=== PATIENT | female | born 1995 | race African-American/Black ===

== ENCOUNTER 2020-01-02 13:54 | Outpatient (CLI) | payer OTHER, SELFPAY ==
--- NOTE | ~2020-01-02 | XR_ITS ---
EXAMINATION: XR chest 2V EXAM DATE: 01/02/2020 14:33 INDICATION: Frontal chest pain. TECHNIQUE: Frontal and lateral projections of the chest obtained and reviewed. There is no prior justin dy for comparison. FINDINGS: The lungs are clear. There are no pleural effusions. The cardiomediastinal silhouette is within normal limits. There is no pneumothorax suspected. The bones and soft tissues are unremarkab le. IMPRESSION: Normal chest x-ray exam. Reviewed, dictated and finalized at location B. IMPRESSION: Normal chest x-ray exam.
[2020-01-02 15:11] LABS: Basophils Percent Auto 0.2 % (0.2-1.2); Eosinophils Absolute Auto 0.1 K/mm3 (0-0.3); Eosinophils Percent Auto 0.7 % (0-4.4); Hematocrit 42.6 % (37.0-47.0); Hemoglobin 14.4 g/dL (12.0-15.0); Immature Granulocyte Absolute 0.03 K/mm3 (0.00-0.031); Immature Granulocyte Percent A 0.3 % (0-0.5); Lymphocytes Absolute Auto 3.32 K/mm3 (0.9-3.2); Lymphocytes Percent Auto 33.4 % (18.3-44.2); Mean Corpuscular HGB Conc 33.8 g/dl (32-36); Mean Corpuscular Hemoglobin 30.8 pg (26-34); Mean Platelet Volume 9.5 fl (7.4-10.4); Monocytes Absolute Auto 0.7 K/mm3 (0.1-0.6); Monocytes Percent Auto 6.8 % (2.6-8.5); Neutrophils Absolute Auto 5.8 K/mm3 (1.3-6.7); Neutrophils Percent Auto 58.6 % (45.5-73.1); Platelet Count Result 256 k/mm3 (150-375); Red Blood Count 4.68 M/mm3 (4.2-5.4); Red Cell Distribution Width 12.6 % (11.5-14.5)
[2020-01-02 15:21] LABS: Alanine Aminotransferase 30 U/L (4-35); Albumin Level 4.4 g/dL (3.5-5.1); Alkaline Phosphatase 62 U/L (38-126); Aspartate Amino Transferase 26 U/L (14-36); Bilirubin,Total 0.4 mg/dL (0.2-1.3); Blood Urea Nitrogen 5 mg/dL (7-17); Calcium 9.5 mg/dL (8.4-10.2); Carbon Dioxide 29 mmol/L (22-30); Chloride 102 mmol/L (98-107); Estimated Glomerular Filt Rate > 60; Glucose 89 mg/dL (65-105); Potassium 3.7 mmol/L (3.4-5.0); Sodium 139 mmol/L (137-145)
[2020-01-02 15:33] LABS: Troponin I < 0.012 ng/mL (0.000-0.034)
[2020-01-02 15:49] LABS: D Dimer 0.27 ug/mL (<0.48)
== END 2020-01-02 13:55 | disposition home or self-care (01) ==
LOC: ANHIMG 14:07
PROVIDERS: Visit Provider Internal Medicine
DX: R07.9 Chest pain, unspecified (principal)
CPT/HCPCS: 36415; 71046; 80053; 84484; 85025; 85380

== ENCOUNTER 2021-02-22 01:50 | Day surgery (SDC) | payer OTHER, SELFPAY ==
[2021-02-17 17:32] VITALS: BMI 26.4
[2021-02-22] VITALS (7 sets, daily range): BP systolic 111–130; BP diastolic 74–88; PULSE 80–134; RESP 16–20; TEMP 37.1; O2SAT 98–100; BMI 27.3
--- NOTE | 2021-02-22 08:37 | SUR.PREOP ---
patient provided negative Covid results from test on 02/20/2021, placed on chart
--- NOTE | 2021-02-22 09:21 | PM.IMHP ---
H&P: HPI History of Present Illness Date/Time: 02/22/21 09:21 Chief Complaint: tonsillar hypertrophy Narrative: chronically enlarged tonslis after tonsilitis Review of Systems Review of Systems: All systems reviewed & are unremarkable except as noted in HPI and below PMFSH Past Medical History Medical History Asthma Social History Social History Smoking status: Never smoker Living arrangements: alone Gender identity (if verbalized by the patient): Female Spiritual care concerns: No Meds Home Medications and Allergies Home Medications Medication Instructions Recorded Confirmed Type Depo-Provera Contraceptive 1 dose IM DIRECTED 02/17/21 02/17/21 History albuterol 1 dose INHALATION PRN PRN 02/17/21 02/17/21 History Allergies Allergy/AdvReac Type Severity Reaction Status Date / Time No Known Allergies Allergy Unverified 02/17/21 17:32 Exam Narrative: Exam Narrative: 4+ exophytic tonsils, rest of exam wnl Assessment and Plan Assessment and plan (1) Chronic tonsillitis: Code(s): J35.01 - Chronic tonsillitis Status: Acute Assessment and Plan: Here for tonsillectomy for chronic tonsillitis. Refer to outpt H&P for full details
--- NOTE | 2021-02-22 09:23 | WPDHPUPDATE1 ---
History and Physical Update Update Date/Time: 02/22/21 09:23 History and Physical has been reviewed, including an updated exam of the patient. There are NO changes in the patient's condition. Risks, benefits, and alternatives have been discussed and questions answered. Patient agrees to proceed with procedure.
[2021-02-22] MEDS: ACETAMINOPHEN 500 MG TABLET 1000 MG PO (09:46)
[2021-02-22] MEDS: LACTATED RINGERS 1,000 ML 30 ML IV CONT (10:00)
--- NOTE | 2021-02-22 10:03 | P.PNAN_ITS ---
Anes - Initial Pre Proc Eval Procedure: Operation Date: 02/22/21 11:00 Proposed Procedures p Bilateral Tonsillectomy - Drew Morejon MD Date/Time: 02/22/21 10:03 Surgeon: Drew Morejon MD Pre Op Diagnosis: tonsillar hypertrophy Patient Data Age: 25 Gender: F Height: 1.55 m Weight: 63.5 kg Allergies Allergy/AdvReac Type Severity Reaction Status Date / Time No Known Allergies Allergy Verified 02/22/21 09:40 Home Medications Medication Instructions Recorded Confirmed Type Depo-Provera Contraceptive 1 dose IM DIRECTED 02/17/21 02/17/21 History albuterol 1 dose INHALATION PRN PRN 02/17/21 02/22/21 History Patient hx anesthesia problems: none Family hx anesthesia problems: none [facility] Past Medical History Medical History Asthma Social History Social History Smoking status: Never smoker Living arrangements: alone Gender identity (if verbalized by the patient): Female Spiritual care concerns: No Anes - Eval Final PreProcedure Day of Procedure 02/22/21 10:03 Patient weight: overweight Heart: regular rate and rhythm Lungs: clear to auscultation and normal air movement Airway: Mallampati scale class II Neurological: alert and oriented Last oral intake: >/= 8 hours ASA classification: II Emergent: no Anesthetic plan: proceed Anesthesia type and monitoring: general ETT and standard monitoring Informed Consent: The patient's anesthetic plan and its attendant risks and benefits were discussed with the patient/family/POA. Questions were solicited a nd answers provided to the satisfaction of the patient/family/POA.
--- NOTE | 2021-02-22 10:43 | P.OP_ITS ---
Procedure Note - Detailed Date of procedure: 02/22/21 Pre-op diagnosis: tonsillar hypertrophy Post-op diagnosis: same Procedure performed: Bilateral tonsillectomy Description of procedure: On the date of procedure the patient was met in the pr eoperative area and risk and benefits of the procedure reviewed with the patient who elected to proceed with surgery. The patient was brought back to the room by the anesthesia team and placed under general endotracheal anesthesia. Once an adequate plane of anesthesia was obtained a timeout was performed to assure the patient identification the procedure to be performed were correct. The patient was then prepped and draped in the normal fashion for tonsillectomy. A head wrap and shoulder roll were placed. A Claritza-Nader retractor was inserted into the patient's oral cavity and the patient was suspended from the Jeter stand. The left tonsil grasped with a curved tonsillar tenaculum retracted medially and removed with electrocautery set on 10 standard. After the tonsil was removed the tonsillar fossa was inspected and no bleeding was noted. The right tonsil was then grasped with a curved tenaculum and retracted medially and removed in an identical manner. The tonsillar fossa was inspected and hemostasis was obtained with suction bovie electrocautery. The patient was taken out of suspension and then placed back into suspension. The tonsillar fossas were once again inspected and no bleeding was noted. A tonsil sponge was used to gently abrade the area and no bleeding was noted. The patient was removed from suspension. The Claritza-Nader retractor was removed from the patient's oral cavity. There was no damage to the patient's teeth or lips. Care of the patient was then returned to anesthesia who extubated in the operating room and transferred the patient to recovery in stable condition without complication. Anesthesia: GETA Surgeon: Drew Morejon MD Estimated blood loss (mL): 20 Drains: No Packing: No Pathology: yes (right and left tonsil) Complications: None Condition: stable Disposition: same day Findings: 4+ palatine tonsils
[2021-02-22] MEDS: fentaNYL CITRATE INJ (*CRX) 100 MCG/2 ML VIAL 25 MCG IV PUSH ×2 (11:11→11:24)
--- NOTE | 2021-02-22 11:25 | SUR.PHASEI ---
O2 removed at 1121.
[2021-02-22] MEDS: oxyCODONE HCL (*CRX) 5 MG TAB IR PO (12:05)
== END 2021-02-22 12:45 | disposition home or self-care (01) ==
PROVIDERS: PCP Internal Medicine; Visit Provider Otolaryngology
PROC: (CPT 42826; principal; 2021-02-22 11:00)
DX: J35.01 Chronic tonsillitis (principal); Z79.51 Long term (current) use of inhaled steroids; J45.909 Unspecified asthma, uncomplicated
CPT/HCPCS: 42826; 88304; A9270; J0330; J1100; J2250; J2405; J2704; J3010; J7120

== ENCOUNTER 2024-09-11 15:49 | Outpatient (CLI) | payer BC, SELFPAY ==
--- NOTE | ~2024-09-11 | MR_ITS ---
EXAMINATION: MR knee RT wo con DATE: 09/11/2024 16:21 INDICATION: Right knee pain. Other tear of medial meniscus. TECHNIQUE: Magnetic resonance imaging (MRI) of the right knee was performed without intravenous contr ast. Sequences included axial PD-weighted FS FSE, coronal PD-weighted FSE and PD-weighted FS FSE, sag ittal PD-weighted FSE, and sagittal T2-weighted FS FSE. COMPARISON: Right knee radiographs 08/27/2024 FINDINGS: Medial compartment: Medial meniscus is normal. Medial compartment cartilage is normal. Lateral compartment: Lateral meniscus is normal. Lateral compartment cartilage is normal. Patellofemoral compartment: Patellar cartilage is normal. Trochlear cartilage is normal. Ligaments and tendons: Anterior and posterior cruciate ligaments are normal. There are changes of sprain of medial collatera l ligament characterized by thickening and increased signal intensity proximally and adjacent edema. The lateral collateral ligament complex is normal. There is mild patellar tendinopathy. Fluid: There is a small knee joint effusion. There is a small Robison's cyst. There is mild superficial infrap atellar bursitis. IMPRESSION: 1. Sprain of medial collateral ligament (grade 2). 2. Small knee joint effusion. 3. Small Robison's cyst. Reviewed, dictated and finalized at location A. [employer]ING [employer]
== END 2024-09-11 15:50 | disposition home or self-care (01) ==
LOC: GOSHIMG 15:50
PROVIDERS: PCP Family Medicine; Visit Provider Orthopaedic Surgery
DX: S83.411A Sprain of medial collateral ligament of right knee, initial encounter (principal); M25.461 Effusion, right knee; M71.21 Synovial cyst of popliteal space [Baker], right knee; X58.XXXA Exposure to other specified factors, initial encounter
CPT/HCPCS: 73721

== ENCOUNTER 2024-10-30 08:00 | Outpatient (RCR) | payer BC, SELFPAY ==
--- NOTE | 2024-09-24 10:13 | OPREHPOC ---
Outpatient Therapy Plan of Care This is a Multidisciplinary Plan of Care that may contain components documented by all disciplines (PT, OT, and ST.) PT Problem 1 PT Problem #1 Knowledge Deficit PT Goal 1 Goal / Goal Update Pt to be IND with issued HEP Target Visit 6 PT Problem 2 PT Problem #2 Pain PT Goal 1 Goal / Goal Update 1. Pt to report knee pain no greater than 3/10 in the last week. 2. Pt to report 75% return to prior level of function. Target Visit 6 PT Problem 3 PT Problem #3 Impaired Functional Mobil PT Goal 1 Goal / Goal Update 1. Pt to demonstrate a functional lift and carry with 40lb without an increase in pain. Target Visit 6
--- NOTE | 2024-09-24 10:13 | PTOPEVAL1 ---
Assessment and note entered by Yuly Santillan, PT, DPT Evaluation Information Assessment Status Evaluation Diagnosis kendy knee pain ICD-10 Condition Codes (PT) M25.561,Pain in left knee M25.562 Subjective Information Pt reports a partially torn MCL in her R knee. Pt reports knee pain for the last 2-3 months without a MICHELE. She is not planning on surgery at this time . She got a cortisone and it has helped a lot with her pain. Currently bending her knees beyond a certain position will cause pain, at times it is tender to the touch. She likes to weight lift but has not returned back to the gym out of fear of pain. She states she has modified her daily activities to avoid pain. 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 Pt wears a compression brace and uses vulturine for pain management. Reported Pain Level Pain Score 0,5: Self Report Assessment PT Clinical Summary Pt presents to therapy today for her initial evaluation with a diagnosis of kendy knee pain R>L. Today she demonstrates ankle, knee, and hip ROM that is all WNL. She has good strength throughout her BLEs with a minor decreased in her hip abductors kendy. She ambulates with a minor pes planus and also demonstrates increased pes planus and knee valgus with a functional squat. Skilled therapy services are indicated to manage pain and to assist pt in returning to prior level of function. Plan of Care Interventions Gait Training,Hot Pack/Cold Pack,Manual Therapy, Neuro Re-education,Patient/Caregiver Educati, Therapeutic Activities,Therapeutic Exercise PT Services Indicated Yes Treatment Frequency and 1x/wk for 6 visits Duration These treatments will address the objective and functional deficits as defined above. The patient will be advanced safely and appropriately in order for the patient to progress towards his/her prior level of function. Additional exercises will be introduced and as well as a comprehensive home exercise program upon discharge, if needed, ?to ensure carryover of functional gains achieved in the clinic. This treatment plan has been reviewed and agreement upon by the patient.
--- NOTE | 2024-10-01 09:51 | PCPTNOTE ---
Patient no showed this date on 10/01/24. Called and left voicemail.
--- NOTE | 2024-10-02 14:25 | PCPTNOTE ---
Patient called and cancelled today and did not provide reason.
--- NOTE | 2024-10-14 08:10 | PCPTNOTE ---
Patient called to cancel her appointment reporting she is ill.
--- NOTE | 2024-10-30 11:38 | OPREHPOC ---
Outpatient Therapy Plan of Care This is a Multidisciplinary Plan of Care that may contain components documented by all disciplines (PT, OT, and ST.) PT Problem 1 PT Problem #1 Knowledge Deficit PT Goal 1 Goal / Goal Update Pt to be IND with issued HEP Target Visit 6 Progress Met PT Problem 2 PT Problem #2 Pain PT Goal 1 Goal / Goal Update 1. Pt to report knee pain no greater than 3/10 in the last week. 2. Pt to report 75% return to prior level of function. 10/30/24: 1. progressing, 04/01 2. met Target Visit 6 Progress Partially Met PT Problem 3 PT Problem #3 Impaired Functional Mobility PT Goal 1 Goal / Goal Update 1. Pt to demonstrate a functional lift and carry with 40lb without an increase in pain. Target Visit 6 Progress Partially Met
--- NOTE | 2024-10-30 11:39 | PTOPPROG ---
Assessment and note entered by Yuly Santillan, PT, DPT Evaluation Information Assessment Status Progress Diagnosis kendy knee pain ICD-10 Condition Codes (PT) Pain in right knee M25.561,Pain in left knee M25. 562 Subjective Information Pt states her knee is doing better, she states it is no longer tender to the touch. Pts states she is still wearing the compression brace, has attempted a few times to not wear the brace. She has not return to the gym. States the R knee is no longer aching in standing but the the L knee has started. Pt states her pain frequency and intensity has decreased as well. Pt states she has been able to walk up the stairs with an increased pace that feel back to her baseline. Assessment PT Clinical Summary Pt presents to therapy today for her progress report following 3 visits of therapy and participation in a HEP to treat her diagnosis of kendy knee pain R>L. She demonstrates improved hip strength and alignment. She continues to have medial knee pain bilaterally with prolonged standing and with stairs. Continuation of skilled therapy services are indicated to continue progressing towards goals and for pain management. Plan of Care Interventions Gait Training,Hot Pack/Cold Pack,Manual Therapy, Neuro Re-education,Patient/Caregiver Education, Therapeutic Activities,Therapeutic Exercise PT Services Indicated Yes Treatment Frequency and 1x/wk for 6 visits Duration These treatments will address the objective and functional deficits as defined above. The patient will be advanced safely and appropriately in order for the patient to progress towards his/her prior level of function. Additional exercises will be introduced and as well as a comprehensive home exercise program upon discharge, if needed, ?to ensure carryover of functional gains achieved in the clinic. This treatment plan has been reviewed and agreement upon by the patient.
--- NOTE | 2024-11-18 08:03 | PCPTNOTE ---
Patient called & cancelled scheduled appointment this date, did not give a reason why.
--- NOTE | 2024-12-17 10:19 | PTOPDC ---
Assessment and note entered by Yuly Santillan, PT, DPT Evaluation Information Assessment Status Discharge - Pt Not Present Diagnosis kendy knee pain ICD-10 Condition Codes (PT) Pain in right knee M25.561,Pain in left knee M25. 562 Subjective Information Pt called and cancelled last appointment on . Called at that time to follow up and have not heard from pt since, will be discharged at this time d/t no communicating with clinic. Assessment PT Clinical Summary Pt completed 3 visits of therapy from 09/24/24 to . If she needs additional therapy at a later date she will need a new order.
== END 2024-12-17 14:02 | disposition home or self-care (01) ==
LOC: ANHGOSHPT 08:00
PROVIDERS: PCP Family Medicine
DX: M25.561 Pain in right knee (principal)
CPT/HCPCS: 97110; 97161; 97530

== ENCOUNTER 2025-05-24 09:13 | Emergency (ER) | payer BC, SELFPAY ==
[2025-05-24 09:22] VITALS: BP 115/74; PULSE 81; RESP 18; TEMP 36.5; O2SAT 100
--- NOTE | 2025-05-24 10:00 | ED.FEMALEGU ---
HPI - Female Genitourinary General Chief complaint: Urogenital-Female Stated complaint: vulvar irritation Source: patient and RN notes reviewed Mode of arrival: ambulatory Limitations: no limitations History of Present Illness HPI Narrative: Patient presents today with a 2 day history of vulvar irritation and inflammation. Denies any obvious vaginal discharge. Denies any urinary symptoms. No OTC treatment prior to arrival. Believe she has a yeast infection. Related Data Home Medications ?Medication ?Instructions ?Recorded ?Confirmed ?Last Taken ?Type albuterol 90 mcg/actuation aerosol mcg inhalation 08/27/24 09/23/24 Unknown History inhaler budesonide-formoterol HFA 80 2 puff inhalation Q12H 08/27/24 10/28/24 Unknown History mcg-4.5 mcg/actuation aerosol inhaler (Symbicort) cetirizine 10 mg tablet (Zyrtec) 10 mg PO DAILY PRN allergy symptoms 08/27/24 10/28/24 Unknown History cholecalciferol (vitamin D3) 25 05/24/25 Unknown History mcg (1,000 unit) tablet Allergies Allergy/AdvReac Type Severity Reaction Status Date / Time No Known Allergies Allergy Verified 05/24/25 09:50 [facility] Past Medical History Medical History Asthma Surgical History Surgical History H/O LEEP Hx of tonsillectomy Family History Family History Father Osteoarthritis Mother Hypertension Sibling Heart disease Thyroid disease Grandparent Alcoholism Diabetes mellitus Heart disease Asthma Cerebrovascular accident Social History Social History Smoking status: Never smoker Alcohol intake: current Alcohol use details: Occasionally Substance use: never Substance use type: does not use Do You Feel Safe in your Home?: Yes Lack of Transportation: No Lack of Food: Never True Current Housing: I Have Housing Concerned About Future Housing: No Difficulty Paying Gas/Electric Bills: No Difficulty Paying for Meds: No Currently Unemployed: No Education: Master's Degree or Higher Difficulty w/ Childcare or Family Care: No Living arrangements: alone Gender identity (if verbalized by the patient): Female Spiritual care concerns: No Comments At time of signature, I have reviewed and agree with nursing past medical, surgical, social and family history unless otherwise noted. Please see nursing chart for further information. There is no relevant family history pertinent to the presenting complaint Exam Narrative: GENERAL: Well-appearing, well-nourished, and in no acute distress. HEAD: Normocephalic, atraumatic. EYES: EOMI. No redness or drainage. Conjunctivae normal. ENT: Mucous membranes pink and moist. NECK: Normal AROM. CHEST: No respiratory distress. : Vulva is mildly erythematous with moderate white material in the labial folds as well as moderate amount of thin white vaginal discharge. EXTREMITIES: Normal range of motion. No edema. SKIN: Warm, dry, no rash. Capillary refill normal. Normal skin turgor. NEURO: No focal deficits. Alert and oriented x3. Gait steady. PSYCH: Normal affect. No signs of depression or anxiety. Course Course Level of Care: Express Care Visit Vital Signs Vital signs: Vital Signs Temperature 97.7 F 05/24/25 09:22 Pulse Rate 81 05/24/25 09:22 Respiratory Rate 18 05/24/25 09:22 Blood Pressure 115/74 05/24/25 09:22 Pulse Oximetry 100 05/24/25 09:22 Temperature 97.7 F 05/24/25 09:22 Pulse Rate 81 05/24/25 09:22 Respiratory Rate 18 05/24/25 09:22 Blood Pressure 115/74 05/24/25 09:22 Pulse Oximetry 100 05/24/25 09:22 Reviewed MDM - Female Genitourinary MDM Narrative Medical decision making narrative: 29-year-old female patient with vulvar irritation and inflammation x2 days. Denies vaginal discharge or urinary symptoms. Patient frequently goes to the gym to workout but denies any recent antibiotic use, swimming. Vulvar exam shows white discharge and some vulvar irritation. Prescription for fluconazole sent to pharmacy. Vital signs stable. Anticipatory guidance given. Differential Diagnosis Differential diagnosis: Likely urinary tract infection, vaginitis and other (Bacterial vaginosis) Critical Care Time Critical Care Time Critical Care Time: No Discharge Plan Discharge Clinical Impression: Acute vulvovaginitis Patient Disposition: Home Condition: Stable Instructions: Yeast Infection (ED) Additional Instructions: Please take the Diflucan as prescribed. Change sweaty close frequently. Do not sit in wet swim suits. Wear cotton underwear is to wick sweat away from your body. If after you finish the Diflucan, you are still having symptoms, please follow-up with your OBGYN. Patient Language: Greenlandic Prescriptions: New fluconazole 150 mg tablet 150 mg PO Q3D Qty: 2 0RF No Action cholecalciferol (vitamin D3) 25 mcg (1,000 unit) tablet budesonide-formoterol [Symbicort] 80-4.5 mcg/actuation HFA aerosol inhaler 2 puff inhalation Q12H albuterol 90 mcg/actuation aerosol inhalation cetirizine [Zyrtec] 10 mg tablet 10 mg PO DAILY PRN (Reason: allergy symptoms) Follow-up/Referrals: PHYSICIAN,HOUSE PIPING INSPECTOR [Primary Care Provider] - Time of Disposition: 10:00
== END 2025-05-24 10:04 | disposition home or self-care (01) ==
PROVIDERS: Emergency Provider Nurse Practitioner
DX: N76.0 Acute vaginitis (principal); J45.909 Unspecified asthma, uncomplicated
CPT/HCPCS: 99213; G0463

== ENCOUNTER 2025-08-18 07:55 | Outpatient (CLI) | payer BC, SELFPAY ==
--- OUTSIDE RECORDS SUMMARY | 2025-08-18 08:00 | XMS_ITS | Clinical Summary ---
Author Organization [facility] Address [address] [place] [address] Care Team Providers Care Sand Polisher Name Role Phone Unavailable Primary Care Provider Unavailabl e Source Comments [facility] Affiliates and Associated Physician Practices is amultiple site organization consisting of ambulatory clinics and hospital sitesin [place], [place], [place] and [place]. This disclosure is being madepursuant to the Care Everywhere program and may not contain all information available regarding this patient. Last updated 18.[employer] [facility] Allergies No known active allergies Medications * Be aware that medications may not be up to date on this document. Alwaysverify current medications with the patient. No known medications Social History Tobacco Use Types Packs/Day Years Used Date Smoking Tobacco: Never Smokeless Tobacco: Never Alcohol Use Standard Drinks/Week Comments Yes 0 (1 standard drink = 0.6 oz pur e alcohol) occasionaly Comments Unknown Sex and Gender Information Value Date Recorded Sex Assigned at Not on file Legal Sex Female 3:08 PM CDT Gender Identity Not on file Sexual Orientation Not on file Last Filed Vital Signs Vital Sign Reading Time Taken Comments Blood Pressure 124/80 11/26/2018 12:41 PM [employer] Pulse 73 11/26/2018 12:41 PM [employer] Temperature 36.6 C (97.9 F) 11/26/2018 12:41 PM [employer] Respiratory Rate 16 11/26/2018 12:41 PM [employer] Oxygen Saturation 98% 11/26/2018 12:41 PM [employer] Inhaled Oxygen Concentration - - Weight 68 kg (150 lb) 11/26/2018 12:41 PM [employer] Height 154.9 cm (5' 1) 11/26/2018 12:41 PM [employer] CO[employer] Body Mass Index 28.34 11/26/2018 12:41 PM [employer] Plan of Treatment Health Maintenance Due Date Last Done Comments HIV SCREENING 2010 HEPATITIS C SCREENING 06/11/2013 DTAP/TDAP/TD VACCINES (1 - Tdap) 2014 HEPATITIS B VACCINE (1 of 3 - 19+ 3-dose series) 2014 PAP SMEAR 2016 HPV VACCINE (1 - 3-dose SCDM series) 2022 DEPRESSION SCREENING 10/23/2024 COVID-19 VACCINE (1 - 2023-2 5 season) 2025 INFLUENZA VACCINE (#1) 2025 ZOSTER VACCINE (1 of 2) 2045 HIB VACCINE Aged Out No longer eligi ble based on patient's age to complete this topic MENINGOCOCCAL (Group B) VACC INE SHARED DECISION-MAKING Aged Out No longer eligibl e based on patient's age to complete this topic MENINGOCOCCAL GROUPS A/C/Y/W VACCINE Aged Out No longer eligible b ased on patient's age to complete this topic PNEUMOCOCCAL VACCINE Aged Out No long er eligible based on patient's age to complete this topic Insurance ANTH [employer]
--- OUTSIDE RECORDS SUMMARY | 2025-08-18 08:00 | XMS_ITS | Clinical Summary ---
Author Organization [facility] Care Team Providers Care Insulation Professional Name Role Phone Unavailable Primary Care Provider Unavailabl e Social History Tobacco Use Types Packs/Day Years Used Date Smoking Tobacco: Never Assessed Comments Unknown Sex and Gender Information Value Date Recorded Sex Assigned at Not on file Legal Sex Female 9:49 AM CDT Gender Identity Not on file Sexual Orientation Not on file Plan of Treatment Health Maintenance Due Date Last Done Comments Hepatitis C Virus (HCV) Screening 1995 TdaP Immunization 1995 Pap Smear 2016 Human Papillomavirus (HPV) Immunization (1 - 3-dose SCDM series) 2022 Cervical Cancer Screening (CCS) 2025 HPV/Cotest 2025 Influenza Immunization (#1) 2025 SARS-COV-2 Immunization ( season) 2025 Respiratory Syncytial Virus (RSV) Immunization (Adult) (1 - 1-dose 75+ series) 2070 DTaP/Tdap/Td Immunization Discontinued 1999, 12/23/1996, 04/02/1996, Additional history exists Hepatitis B Immunization Completed 013, 04/28/1997, 1995, Additional history exists Meningococcal Immunization (ACWY) Aged Out 03/27/2013 No longer eligible based on patient's age to complete this topic Pneumococcal Immunization Combined Aged Out No longer eligible based on patient's age to complete this topic Rotavirus Immunization Aged Out No lo nger eligible based on patient's age to complete this topic
[2025-08-18 13:17] LABS: Hematocrit 40.7 % (37.0-47.0); Hemoglobin 13.1 g/dL (12.0-15.0); Immature Granulocyte Percent A 0.4 % (0-0.5); Lymphocytes Absolute Auto 1.90 K/mm3 (0.9-3.2); Mean Corpuscular HGB Conc 32.2 g/dl (32-36); Mean Corpuscular Hemoglobin 31.1 pg (26-34); Mean Corpuscular Volume 96.7 fl (80-100); Nucleated Red Blood Cells Absolute Auto 0.000 K/mm3 (0.0-0.012); Nucleated Red Blood Cells Perc 0.0 % (0.0-0.2); Platelet Count Result 268 k/mm3 (150-375); Red Blood Count 4.21 M/mm3 (4.2-5.4); White Blood Count 5.6 K/mm3 (4.5-10.0)
[2025-08-18 13:32] LABS: Alanine Aminotransferase 21 U/L (6-35); Albumin Level 4.3 g/dL (3.5-5.1); Alkaline Phosphatase 63 U/L (38-126); Anion Gap 7 mmol/L (4-12); Aspartate Amino Transferase 39 U/L (14-36); Bilirubin,Total 0.3 mg/dL (0.2-1.3); Blood Urea Nitrogen 8 mg/dL (7-17); Calcium 9.0 mg/dL (8.4-10.2); Carbon Dioxide 25 mmol/L (22-30); Chloride 106 mmol/L (98-107); Cholesterol 168 mg/dL (0-200); Estimated Glomerular Filt Rate > 60; Glucose 86 mg/dL (65-110); HDL Direct 63 mg/dL; Potassium 4.0 mmol/L (3.4-5.0); Sodium 138 mmol/L (137-145); Total Protein 7.8 g/dL (6.3-8.2); Triglycerides 42 mg/dL (<150)
[2025-08-18 13:37] LABS: Free T4 Free Thyroxine 0.99 ng/dL (0.78-2.19)
[2025-08-18 13:51] LABS: Thyroid Stimulating Hormone Reflex 2.460 uIU/mL (0.465-4.68)
[2025-08-18 13:55] LABS: Hepatitis B Surface Antigen Negative (Negative)
[2025-08-18 14:08] LABS: HIV 1/2 Ab P24 Ag Result Negative (Negative)
[2025-08-18 15:44] LABS: Syphilis IgG/IgM Antibody Non-Reactive (Nonreactive)
[2025-08-25 18:08] LABS: Testosterone, Total, LC/MS 39 ng/dL (.)
== END 2025-08-18 07:56 | disposition home or self-care (01) ==
PROVIDERS: Student in an Organized Health Care Education/Training Program; Visit Provider Family Medicine
DX: Z00.00 Encounter for general adult medical examination without abnormal findings (principal); L68.0 Hirsutism; N87.1 Moderate cervical dysplasia; Z11.3 Encounter for screening for infections with a predominantly sexual mode of transmission
CPT/HCPCS: 36415; 80053; 80061; 83498; 84146; 84403; 84439; 84443; 85025; 86593; 86703; 86803; 87340; G0432